=== PATIENT | female | born 1950 | race Caucasian/White ===

== ENCOUNTER 2022-05-31 10:56 | Outpatient (CLI) | payer MEDICARE, SELFPAY ==
--- NOTE | ~2022-05-31 | CT_ITS ---
EXAMINATION: CTA brain carotid DATE: 05/31/2022 11:40 INDICATION: Vertigo. Stroke. TECHNIQUE: Computed tomographic angiography (CTA) of the head was performed without and with 100 mL O mnipaque-350 intravenous contrast. CTA of the neck was performed with intravenous contrast. Automated exposure control and iterative reconstruction technique were employed. The dose-length product was 1 457.96 mGy-cm. Maximum intensity projection and volume rendered 3D-reconstructions were created by leonard frey technologist on a separate workstation. COMPARISON: None. FINDINGS: HEAD CTA: There is no intracranial hemorrhage, acute infarction, or abnormal intracranial mass lesion . There is chronic encephalomalacia involving the right cerebellum and right middle cerebellar pedunc le. The ventricles are normal in size. There are likely changes of right ocular lens replacement surg aysha. There is mild mucosal thickening in the paranasal sinuses. The mastoid air cells are normal. Rig ht vertebral artery is dominant. There is no significant stenosis of basilar artery or the posterior cerebral arteries. The posterior communicating arteries are normal. There is no significant stenosis of the intracranial internal carotid arteries or anterior or middle cerebral arteries. Anterior commu nicating artery is normal. There is no aneurysm. NECK CTA: There is mild mediastinal lymphadenopathy. There is no significant stenosis of the vertebra l arteries. There is plaque in the proximal internal carotid arteries. There is 28% stenosis of the p roximal right internal carotid artery relative to normal distal artery lumen diameter (NASCET criteri a). There is 0% stenosis of the proximal left internal carotid artery relative to normal distal arter y lumen diameter. There is severe cervical spondylosis. IMPRESSION: 1. Chronic encephalomalacia involving the right cerebellum and right middle cerebellar peduncle. 2. No aneurysm or significant intracranial arterial stenosis. 3. 28% stenosis of the proximal right internal carotid artery relative to normal distal artery lumen diameter (NASCET criteria). 4. 0% stenosis of the proximal left internal carotid artery relative to normal distal artery lumen di ameter. 5. Mild mediastinal lymphadenopathy, likely reactive. Reviewed, dictated and finalized at location A. IMPRESSION: 1. Chronic encephalomalacia involving the right cerebellum and right middle cer ebellar peduncle. 2. No aneurysm or significant intracranial arterial stenosis. 3. 28% stenosis of the proximal right internal carotid artery relative to roma l distal artery lumen diameter (NASCET criteria). 4. 0% stenosis of the proximal left internal carotid artery relative to normal distal artery lumen diameter. 5. Mild mediastinal lymphadenopathy, likely reactive.
[2022-05-31 11:31] LABS: Estimated Glomerular Filt Rate > 60
== END 2022-05-31 10:57 | disposition home or self-care (01) ==
PROVIDERS: PCP Family Medicine; Visit Provider Student in an Organized Health Care Education/Training Program
DX: R93.0 Abnormal findings on diagnostic imaging of skull and head, not elsewhere classified (principal); I65.21 Occlusion and stenosis of right carotid artery
CPT/HCPCS: 70496; 70498; Q9967

== ENCOUNTER 2022-06-10 13:14 | Outpatient (CLI) | payer MEDICARE, SELFPAY ==
--- NOTE | 2022-06-10 13:45 | ECHO_ITS ---
Patient Info Name: Aniya Muniz Age: 72 years : 1950 Gender: Female Ht: 63 in Wt: 190 lbs BSA: 1.99 m2 HR: 66 bpm BP: 140 / 82 mmHg Heart Rhythm: Sinus Rhythm Technical Quality: Fair Exam Date: 06/10/2022 1:59 PM Exam Location: [facility] Patient Status: Outpatient Admit Date: 06/10/2022 Staff Ordering Physician: Nelson, Bri Colon DO Safety Investigator: Alee Vivar RDCS Attending Provider: Oneyda Jo MD Referring Physician: Nelson NOGUEIRA; Exam Type: CA echo doppler color flow Study Info Indications R01.1 - Cardiac murmur, unspecified Complete two-dimensional, color flow and Doppler transthoracic echocardiogram is performed. Summary 1. Complete two-dimensional, color flow and Doppler transthoracic echocardiogram is performed. 2. Left ventricular chamber dimension is normal. 3. Left ventricular systolic function is normal, estimated at 60-65%. 4. The left ventricular diastolic function is grade I diastolic dysfunction. 5. E/e' 8 is minimally elevated. 6. The aortic valve is not well visualized. Cannot determine number of aortic valve leaflets. 7. There is severe aortic valve sclerosis. 8. There is moderate aortic valve stenosis with a peak velocity of 243 cm/s, mean gradient of 13 mmHg, and aortic valve area of 1.2 cm2. 9. There is trace aortic valve regurgitation. 10. No pulmonary hypertension, estimated pulmonary arterial systolic pressure is 33 mmHg. Left Ventricle E/e' 8 is minimally elevated. Left ventricular chamber dimension is normal. Left ventricular systolic function is normal, estimated at 60-65%. The left ventricular diastolic function is grade I diastolic dysfunction. Right Ventricle Right ventricular systolic function is normal and with normal TAPSE 1.9 cm. Right ventricular chamber dimension is normal. Left Atria Left atrial chamber dimension is normal. Right Atria Right atrial chamber dimension is normal. Aortic Valve The aortic valve is not well visualized. Cannot determine number of aortic valve leaflets. There is severe aortic valve sclerosis. There is moderate aortic valve stenosis with a peak velocity of 243 cm/s, mean gradient of 13 mmHg, and aortic valve area of 1.2 cm2. There is trace aortic valve regurgitation. Pulmonic Valve There is no pulmonic regurgitation. Mitral Valve There is no mitral valve stenosis. There is no mitral valve regurgitation. Tricuspid Valve There is no tricuspid valve regurgitation. No pulmonary hypertension, estimated pulmonary arterial systolic pressure is 33 mmHg. Pericardium/Pleural There is no pericardial effusion. Inferior Vena Cava Normal inferior vena cava with >50% collapse upon inspiration consistent with normal right atrial pressure, 5 mmHg. Aorta The aortic root size at the sinus of Valsalva is normal. Left Ventricular Outflow Tract Name Value Normal LVOT 2D LVOT Diameter 2.0 cm LVOT Doppler LVOT Peak Gradient 4 mmHg LVOT Mean Gradient 2 mmHg LVOT VTI 20 cm LVOT VTI/AV
== END 2022-06-10 13:15 | disposition home or self-care (01) ==
PROVIDERS: PCP Family Medicine; Visit Provider Student in an Organized Health Care Education/Training Program
DX: R01.1 Cardiac murmur, unspecified (principal); Z86.73 Personal history of transient ischemic attack (TIA), and cerebral infarction without residual deficits
CPT/HCPCS: 93306

== ENCOUNTER 2022-09-16 14:00 | Outpatient (RCR) | payer MEDICARE, SELFPAY ==
--- NOTE | 2022-09-13 14:39 | PTOPEVAL1 ---
Assessment and note entered by Susan Reed DPT Evaluation Information Assessment Status Evaluation Subjective Information Pt reports she was diagnosed with a stroke in November 2021, affected her brainstem. 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 Has a cyst on her wrist that is affecting how she picks something up. Pt reports she is bouncing off doors and schneider . States she is unsteady, multiple falls with most recent being 3 weeks ago. Most unsteadiness is in the shower and does not have grab bars, also feels worse throughout the day as she gets tired. Has noticed her balance and weakness has gradually worsened over the past few months. Was previously using a walker and then cane. Pt is living in her daughter's house but daughter is a travel nurse. States she has neighbors who can check on her occasionally. No stairs in the house except to basement but does not go down there, 3 steps to get in. Cannot alternate feet to descend stairs and reports it is difficult. Pt is driving. Patient goal: improve strength. Reported Pain Level Pain Score 0: Self Report Assessment PT Clinical Summary The patient is presenting to skilled therapy following a stroke in 2021 and difficulty walking/ history of falls. She presents with overall decreased core and lower extremity strength as well as balance impairments that are contributing to her difficulty with ADL's including showering and descending stairs. She will benefit from therapy to address these impairments to decrease fall risk and improve mobility at home . Plan of Care Interventions Manual Therapy,Neuro Re-education,Patient/ Caregiver Education,Therapeutic Activities, Therapeutic Exercise,Self-Care/Home Management PT Services Indicated Yes Treatment Frequency and 2 times a week for 4 weeks Duration These treatments will address the objective and functional deficits as defined above. The patient will be advanced safely and appropriately in order for the patient to progress towards his/her prior level of function. Additional exercises will be introduced and as well as a comprehensive home exercise program upon discharge, if needed, ?to ensure carryover of functional gains achieved in the clinic. This treatment plan has been reviewed and agreement upon by the patient.
--- NOTE | 2022-09-23 11:16 | PTOPDC ---
Assessment and note entered by Melissa Churchill, PT Assessment PT Clinical Summary Pt did not show up for her treatment on 09/23/22. She was called to inquire as to her status. She returned the phone call stating she was changing insurances, a process that she reports will take 4 -6 weeks and thus wants to cease her therapy at this time. She was advised she could return to therapy at any time with a current prescription.
--- NOTE | 2022-09-23 11:34 | PCPTNOTE ---
Patient called & cancelled scheduled remainder of appointments this date due to insurance change.
== END 2022-09-23 12:47 | disposition home or self-care (01) ==
LOC: ANHHIPT 14:00
PROVIDERS: PCP Nurse Practitioner Family; Visit Provider Nurse Practitioner Family
DX: R26.89 Other abnormalities of gait and mobility (principal)
CPT/HCPCS: 97110; 97112; 97162

== ENCOUNTER 2022-12-06 09:55 | Outpatient (CLI) | payer MEDICARE, SELFPAY ==
--- NOTE | 2022-12-06 11:00 | NEURO_ITS ---
Impression: # Complains of numbness of right hand. # Right Carpal Tunnel Syndrome, sensory more than motor. # Normal needle/EMG exam. # Clinical correlation recommended; Higher involvement cannot be ruled out. Nerve Conduction Studies Anti Sensory Summary Table Stim Site NR Peak (ms) P-T Amp (?V) Site1 Site2 Delta-P (ms) Dist (cm) Brant (m/s) Right Median Anti Sensory (2-3nd Digit) Wrist 4.8 19.1 Wrist 2-3nd Digit 4.8 14.0 29 Wrist 6.0 15.1 Wrist 2-3nd Digit 4.8 14.0 29 Right Radial Anti Sensory (Base 1st Digit) Wrist 2.6 10.3 Wrist Base 1st Digit 2.6 0.0 Right Ulnar Anti Sensory (5th Digit) Wrist 2.4 35.8 Wrist 5th Digit 2.4 14.0 58 Motor Summary Table Stim Site NR Onset (ms) O-P Amp (mV) Site1 Site2 Delta-0 (ms) Dist (cm) Brant (m/s) Right Median Motor (Abd Poll Brev) Wrist 3.6 1.0 Elbow Wrist 4.8 28.0 58 Elbow 8.4 1.4 Right Ulnar Motor (Abd Dig Minimi) Wrist 2.6 6.6 A Elbow Wrist 5.0 29.0 58 A Elbow 7.6 5.8 F Wave Studies NR F-Lat (ms) L-R F-Lat (ms) Right Median (Mrkrs) (Abd Poll Brev) 28.30 Right Ulnar (Mrkrs) (Abd Dig Min) 27.50 EMG Side Muscle Nerve Root Ins Act Fibs Amp Dur Recrt Comment Right 1stDorInt Ulnar C8-T1 Nml Nml Nml Nml Nml Right Ext Indicis Radial (Post Int) C7-8 Nml Nml Nml Nml Nml Right Ext Digitorum Radial (Post Int) C7-8 Nml Nml Nml Nml Nml Right BrachioRad Radial C5-6 Nml Nml Nml Nml Nml Right PronatorTeres Median C6-7 Nml Nml Nml Nml Nml Right Abd Poll Brev Median C8-T1 Nml Nml Nml Nml Nml Right ABD Dig Min Ulnar C8-T1 Nml Nml Nml Nml Nml MTDD
== END 2022-12-06 09:56 | disposition home or self-care (01) ==
PROVIDERS: PCP Nurse Practitioner Family; Visit Provider Plastic Surgery
DX: G56.01 Carpal tunnel syndrome, right upper limb (principal)
CPT/HCPCS: 95886; 95909

== ENCOUNTER 2023-02-09 01:10 | Day surgery (SDC) | payer MEDICARE, SELFPAY ==
[2023-01-13 12:58] VITALS: BMI 34.0
--- NOTE | 2023-01-13 13:32 | PC.NURSE ---
Report to the Outpatient Waiting Room, entrance under the green pavilion located off [facility], at time __6:00AM on date __01/26/23 . Planned Procedure Time: __7:30AM . Time changes happen often and if your time is changed the preop area will call you the afternoon before. - You and your visitor will be asked to self-screen and do not enter if you have any COVID symptoms. - A mask is optional within the hospital at this time. Patients may have clear liquids (water, carbonated beverages, clear teas, apple juice) until 3 hours prior to surgery with a maximum of 20 ounces. - No food from midnight until time of surgery Take the following medications with a SIP of water the morning of surgery: __AMLODIPINE, FLONAS NEEDED DO NOT STOP ANY OF YOUR OTHER PRESCRIPTION MEDICATIONS PRIOR TO SURGERY ?EXCEPT THE FOLLOWING Medications to discontinue per physician __HOLD ASPIRIN 3 DAYS PRE-OP PER DR TANG AND HOLD ALL VITAMINS/SUPPLEMENTS 3 DAYS PRE-OP PER ANESTHESIA Date to take last dose____01/22/23 Please no make-up, nail khmer, hairspray, perfume, deodorant, or body powder the day of surgery. No jewelry (including any body piercings) or valuables the day of surgery, leave them at home. Please take a shower or bath the night before, or the morning of, surgery with an antibacterial soap. Wear comfortable, loose fitting clothing. Children are encouraged to wear pajamas. - Jewelry must be removed prior to entering the operating room. Rings and piercings that are not removed may be cut off. - The hospital will not accept responsibility for valuables. - Please leave all valuables, including medications, at home the day of surgery. If you are going home after surgery, a licensed tow car driver must drive you home. - NO public transportation without another adult if you receive anesthesia. - We recommend that an adult stay with you for 24 hours following discharge. - We also recommend that you do not drive, make important decision, drink alcoholic beverages, or take any drugs that were not prescribed by your health care provider for at least 24 hours after your discharge time. Follow any additional instructions given to you from your surgeon. If you or anyone in your household have experienced Covid symptoms in the past week, please notify your surgeon or the nurse liaison at the phone number below for possible testing. Telephone instructions given to _PATIENT & DAUGHTER___and asked if any additional questions and then verbalized understanding. Patient advised to call surgeon office or pre surgery nurse liaison [phone] if any additional questions.
--- NOTE | 2023-01-27 15:11 | PC.NURSE ---
RESCHEDULED- Report to the Outpatient Waiting Room, entrance under the green pavilion located off [facility], at time _6:30AM on date __02/09/23 . Planned Procedure Time: __8:30AM . Time changes happen often and if your time is changed the preop area will call you the afternoon before. - You and your visitor will be asked to self-screen and do not enter if you have any COVID symptoms. - A mask is optional within the hospital at this time. Patients may have clear liquids (water, carbonated beverages, clear teas, apple juice) until 3 hours prior to surgery with a maximum of 20 ounces. - No food from midnight until time of surgery Take the following medications with a SIP of water the morning of surgery: ____AMLODIPINE DO NOT STOP ANY OF YOUR OTHER PRESCRIPTION MEDICATIONS PRIOR TO SURGERY ?EXCEPT THE FOLLOWING Medications to discontinue per physician _HOLD ASPIRIN 3 DAYS PRE-OP PER DR TANG- LAST DOSE- 02/05/23. HOLD ALL VITAMINS/SUPPLEMENTS 3 DAYS PRE-OP PER ANESTHESIA- LAST DOSE 02/05/23___ Please no make-up, nail [place], hairspray, perfume, deodorant, or body powder the day of surgery. No jewelry (including any body piercings) or valuables the day of surgery, leave them at home. Please take a shower or bath the night before, or the morning of, surgery with an antibacterial soap. Wear comfortable, loose fitting clothing. Children are encouraged to wear pajamas. - Jewelry must be removed prior to entering the operating room. Rings and piercings that are not removed may be cut off. - The hospital will not accept responsibility for valuables. - Please leave all valuables, including medications, at home the day of surgery. If you are going home after surgery, a licensed sulky driver must drive you home. - NO public transportation without another adult if you receive anesthesia. - We recommend that an adult stay with you for 24 hours following discharge. - We also recommend that you do not drive, make important decision, drink alcoholic beverages, or take any drugs that were not prescribed by your health care provider for at least 24 hours after your discharge time. Follow any additional instructions given to you from your surgeon. If you or anyone in your household have experienced Covid symptoms in the past week, please notify your surgeon or the nurse liaison at the phone number below for possible testing. Telephone instructions given to _PATIENT and asked if any additional questions and then verbalized understanding. Patient advised to call surgeon office or pre surgery nurse liaison [phone] if any additional questions.
[2023-02-09] VITALS (8 sets, daily range): BP systolic 89–118; BP diastolic 54–65; PULSE 50–64; RESP 14–16; TEMP 36.3; O2SAT 92–97
--- NOTE | 2023-02-09 07:11 | WPDHPUPDATE1 ---
History and Physical Update Update Date/Time: 02/09/23 07:11 History and Physical has been reviewed, including an updated exam of the patient. There are NO changes in the patient's condition. Risks, benefits, and alternatives have been discussed and questions answered. Patient agrees to proceed with procedure.
[2023-02-09] MEDS: LACTATED RINGERS 1,000 ML 30 ML IV CONT ×2 (07:36→09:58)
--- NOTE | 2023-02-09 08:16 | WPDANESEPPF ---
Anes - Initial Pre Proc Eval Procedure: Operation Date: 02/09/23 08:30 Proposed Procedures p Right Open Carpal Tunnel Release, Right Ulnar Neuroplasty at the Elbow - Jose Braga MD Date/Time: 02/09/23 08:16 Surgeon: Jose Braga MD Pre Op Diagnosis: right carpal and cubital tunnel syndrome Patient Data Age: 72 Gender: F Height: 1.6 m Weight: 85.2 kg Last Vital Signs Temp 97.4 F L 02/09/23 07:44 Pulse 64 02/09/23 07:44 Resp 16 02/09/23 07:44 BP 115/65 02/09/23 07:44 Pulse Ox 96 02/09/23 07:44 O2 Del Method Room Air 02/09/23 07:44 Allergies Allergy/AdvReac Type Severity Reaction Status Date / Time butorphanol [From Stadol] Allergy Severe Anaphylactic Verified 02/09/23 07:20 Shock levofloxacin [From Levaquin] Allergy Severe Anaphylactic Verified 02/09/23 07:20 Shock Sulfa (Sulfonamide Allergy Severe Anaphylactic Verified 02/09/23 07:20 Antibiotics) Shock erythromycin base AdvReac YEAST Verified 02/09/23 07:20 INFECTION Home Medications Medication Instructions Recorded Confirmed Type cholecalciferol (vitamin D3) 1,250 1,250 mcg PO WEEKLY 09/30/21 02/09/23 History mcg (50,000 unit) capsule zinc acetate 50 mg (zinc) capsule 50 mg PO DAILY 09/30/21 02/09/23 History (Galzin) ascorbic acid (vitamin C) 1,000 mg 1 g PO DAILY 04/22/22 02/09/23 History capsule estradiol 10 mcg vaginal tablet 10 mcg vaginal 2XW 08/30/22 02/09/23 History (Yuvafem) magnesium oxide 400 mg (241.3 mg 400 mg PO DAILY 08/30/22 02/09/23 History magnesium) tablet (MagOx) atorvastatin 40 mg tablet 40 mg PO DAILY #90 tabs 10/03/22 02/09/23 Rx amlodipine 5 mg tablet 5 mg PO QAM 01/13/23 02/09/23 History aspirin 81 mg tablet,delayed 182 mg PO DAILY 01/13/23 02/09/23 History release calcium carbonate 600 mg-vitamin 1 tablet PO DAILY 01/13/23 02/09/23 History D3 10 mcg (400 unit) tablet (Calcium 600 + D(3)) cyanocobalamin (vitamin B-12) 1,000 mcg PO DAILY 01/13/23 02/09/23 History 1,000 mcg capsule fluorouracil 5 % topical cream 1 applic topical WEEKLY 01/13/23 02/09/23 History fluticasone propionate 50 1 spray intranasal DAILY 01/13/23 02/09/23 History mcg/actuation nasal spray,suspension folic acid 400 mcg tablet 0.4 mg PO DAILY 01/13/23 02/09/23 History potassium gluconate 600 mg (99 mg) 1,000 mg PO DAILY 01/13/23 02/09/23 History tablet loratadine 10 mg capsule 10 mg PO DAILY PRN Sinus Symptoms 01/27/23 02/09/23 History mesalamine 400 mg capsule (with 800 mg PO TID Cramps #540 ea 02/03/23 02/09/23 Rx delayed release tablets inside) Patient hx anesthesia problems: none Family hx anesthesia problems: none Results Review: All pre-operative results and documents have been reviewed as part of the pre-operative evaluation. [facility] Past Medical History Medical History Allergies Arthritis Asthma Cancer of vaginal vault Colitis Gallbladder disorder Uterine cancer Surgical History Surgical History H/O colonoscopy 2017 H/O knee surgery H/O: hysterectomy History of right cataract surgery Family History Family History Mother Heart disease Congestive heart failure Father Melanoma Lung cancer Social History Social History Smoking status: Never smoker Alcohol intake: current Substance use: never Lack of Transportation: No Lack of Food: Never True Current Housing: I Have Housing Concerned About Future Housing: No Difficulty Paying Gas/Electric Bills: No Difficulty Paying for Meds: No Currently Unemployed: No Difficulty w/ Childcare or Family Care: No Living arrangements: with family Additional living arrangements comments: DAUGHTER Occupation/Education: retired Spiritual care concerns: No
[2023-02-09] MEDS: LIDO 1%/EPINEPHRINE 1:100,000 50 ML VIAL INFILTRATE (08:41)
--- NOTE | 2023-02-09 09:49 | W.PM.PROC2 ---
Procedure Note - Detailed Date of Procedure 02/09/23 Pre-op Diagnosis right carpal and cubital tunnel syndrome Post-op Diagnosis Same Procedure Performed RIGHT OPEN CARPAL TUNNEL RELEASE AND RIGHT ULNAR NEUROPLASTY AT THE ELBOW Surgeon Jose Braga MD Nail Technician Juliana ARMAS Description of Procedure The right carpal tunnel and cubital tunnel sites were marked on the patient with her consent in the holding room for she was taken to the operating room she was placed supine on the operating table. She was given IV sedation. The right upper extremity was prepped and draped in the usual fashion. A time-out was held confirmed. Two sites were again marked for the surgical incisions. Each site was infiltrated with 1% lidocaine with epinephrine. Extremity was exsanguinated and the tourniquet inflated to 250 mmHg. The incision was made 1st on the palm this was carried blunt dissection to the palmar aponeurosis. This and the transverse retinaculum were incised with 15 blade. Under 3 point retraction the ligament divided distally and proximally for complete release. There was no unusual anatomy noted. The skin was closed with interrupted 5 0 nylon suture. Attention was turned to the right elbow this was flexed and supported folded towels. The incision was made. Blunt dissection revealed medial epicondyle triceps muscle. The nerve was difficult to locate under the triceps. It appeared that an unusually large branch of the nerve lay over the triceps. The nerve was also surrounded by fat throughout most of its length. It was carefully dissected from under Jean's ligament. There was very little area of compression proximally it appeared. Distally the flexor muscle fascia was incised. Several vascular structures were cauterized. The nerve did not subluxate.. The wound was closed with intradermal 3-0 Monocryl suture. The skin was closed with a running a 3-0 intradermal Monocryl. The tourniquet was released and dressings applied to both sites. The patient was discharged in stable condition. Estimated Blood Loss 5 Tourniquet Time 47 Drains No Packing No Pathology None sent Complications No immediate complications Condition Stable Disposition Same day
[2023-02-09] MEDS: fentaNYL CITRATE INJ (*CRX) 100 MCG/2 ML VIAL 25 MCG IV PUSH ×2 (10:00→10:15)
== END 2023-02-09 11:40 | disposition home or self-care (01) ==
PROVIDERS: PCP Nurse Practitioner Family; Visit Provider Plastic Surgery
PROC: (CPT 64721; principal; 2023-02-09 08:30)
DX: G56.01 Carpal tunnel syndrome, right upper limb (principal); G56.21 Lesion of ulnar nerve, right upper limb; Z79.82 Long term (current) use of aspirin; E66.9 Obesity, unspecified; Z68.33 Body mass index [BMI] 33.0-33.9, adult
CPT/HCPCS: 64721; 64718; A9270; J1100; J2250; J2405; J2704; J3010; J7120

== ENCOUNTER 2023-02-22 06:07 | Day surgery (SDC) | payer MEDICARE, SELFPAY ==
[2023-01-24 15:57] VITALS: BMI 34.0
--- NOTE | 2023-01-31 15:21 | PM.HPGS ---
History of Present Illness History of Present Illness Consent: Risks, benefits, and alternatives have been discussed and questions answered. Patient agrees to proceed with procedure. Chief complaint: gastritis gastroenteritis,colitis Narrative: Aniya Muniz is a 72 year old female who apparently has ulcerative colitis. She states that she gets a colonoscopy every year [facility] Past Medical History Medical History Allergies Arthritis Asthma Cancer of vaginal vault Colitis Gallbladder disorder Uterine cancer Surgical History Surgical History H/O colonoscopy 2017 H/O knee surgery H/O: hysterectomy History of right cataract surgery Family History Family History Mother Heart disease Congestive heart failure Father Melanoma Lung cancer Social History Social History Smoking status: Never smoker Alcohol intake: current Substance use: never Lack of Transportation: No Lack of Food: Never True Current Housing: I Have Housing Concerned About Future Housing: No Difficulty Paying Gas/Electric Bills: No Difficulty Paying for Meds: No Currently Unemployed: No Difficulty w/ Childcare or Family Care: No Living arrangements: with family Additional living arrangements comments: DAUGHTER Occupation/Education: retired Spiritual care concerns: No Agree to blood products: Yes Meds Home Medications and Allergies Home Medications Medication Instructions Recorded Confirmed Type mesalamine 400 mg capsule (with 400 mg PO QID PRN Cramps 09/29/21 01/27/23 History delayed release tablets inside) cholecalciferol (vitamin D3) 1,250 1,250 mcg PO WEEKLY 09/30/21 01/27/23 History mcg (50,000 unit) capsule zinc acetate 50 mg (zinc) capsule 50 mg PO DAILY 09/30/21 01/27/23 History (Galzin) ascorbic acid (vitamin C) 1,000 mg 1 g PO DAILY 04/22/22 01/27/23 History capsule estradiol 10 mcg vaginal tablet 10 mcg vaginal 2XW 08/30/22 01/27/23 History (Yuvafem) magnesium oxide 400 mg (241.3 mg 400 mg PO DAILY 08/30/22 01/27/23 History magnesium) tablet (MagOx) atorvastatin 40 mg tablet 40 mg PO DAILY #90 tabs 10/03/22 01/27/23 Rx amlodipine 5 mg tablet 5 mg PO QAM 01/13/23 01/27/23 History aspirin 81 mg tablet,delayed 182 mg PO DAILY 01/13/23 01/27/23 History release calcium carbonate 600 mg-vitamin 1 tablet PO DAILY 01/13/23 01/27/23 History D3 10 mcg (400 unit) tablet (Calcium 600 + D(3)) cyanocobalamin (vitamin B-12) 1,000 mcg PO DAILY 01/13/23 01/27/23 History 1,000 mcg capsule fluorouracil 5 % topical cream 1 applic topical WEEKLY 01/13/23 01/27/23 History fluticasone propionate 50 1 spray intranasal DAILY 01/13/23 01/27/23 History mcg/actuation nasal spray,suspension folic acid 400 mcg tablet 0.4 mg PO DAILY 01/13/23 01/27/23 History potassium gluconate 600 mg (99 mg) 1,000 mg PO DAILY 01/13/23 01/27/23 History tablet loratadine 10 mg capsule 10 mg PO DAILY PRN Sinus Symptoms 01/27/23 01/27/23 History Allergies Allergy/AdvReac Type Severity Reaction Status Date / Time butorphanol [From Stadol] Allergy Severe Anaphylactic Verified 01/27/23 15:02 Shock levofloxacin [From Levaquin] Allergy Severe Anaphylactic Verified 01/27/23 15:02 Shock Sulfa (Sulfonamide Allergy Severe Anaphylactic Verified 01/27/23 15:02 Antibiotics) Shock erythromycin base AdvReac YEAST Verified 01/27/23 15:02 INFECTION Assessment and Plan Assessment and plan (1) Colitis: Code(s): K52.9 - Noninfective gastroenteritis and colitis, unspecified Status: Acute Assessment and Plan: Colonoscopy with possible biopsy or polypectomy or cautery or injection of substances.
--- NOTE | 2023-02-20 15:02 | PM.HPGS ---
History of Present Illness History of Present Illness Consent: Risks, benefits, and alternatives have been discussed and questions answered. Patient agrees to proceed with procedure. Chief complaint: gastritis gastroenteritis,colitis Narrative: Aniya Muniz is a 73 year old female Referred for colon cancer screening. She has history of Collagenous colitis for which she takes mesalamine. She is new to the area. she has had no problems with her bowels lately. Review of Systems Review of Systems: All systems reviewed & are unremarkable except as noted in HPI and below PMFSH Past Medical History Medical History Allergies Arthritis Asthma Cancer of vaginal vault Colitis Gallbladder disorder Uterine cancer Surgical History Surgical History H/O colonoscopy 2018 H/O knee surgery H/O: hysterectomy History of right cataract surgery Family History Family History Mother Heart disease Congestive heart failure Father Melanoma Lung cancer Social History Social History Smoking status: Never smoker Alcohol intake: current Substance use: never Lack of Transportation: No Lack of Food: Never True Current Housing: I Have Housing Concerned About Future Housing: No Difficulty Paying Gas/Electric Bills: No Difficulty Paying for Meds: No Currently Unemployed: No Difficulty w/ Childcare or Family Care: No Living arrangements: with family Additional living arrangements comments: DAUGHTER Occupation/Education: retired Spiritual care concerns: No Agree to blood products: Yes Meds Home Medications and Allergies Home Medications Medication Instructions Recorded Confirmed Type cholecalciferol (vitamin D3) 1,250 1,250 mcg PO WEEKLY 09/30/21 02/13/23 History mcg (50,000 unit) capsule zinc acetate 50 mg (zinc) capsule 50 mg PO DAILY 09/30/21 02/13/23 History (Galzin) ascorbic acid (vitamin C) 1,000 mg 1 g PO DAILY 04/22/22 02/13/23 History capsule estradiol 10 mcg vaginal tablet 10 mcg vaginal 2XW 08/30/22 02/13/23 History (Yuvafem) magnesium oxide 400 mg (241.3 mg 400 mg PO DAILY 08/30/22 02/13/23 History magnesium) tablet (MagOx) atorvastatin 40 mg tablet 40 mg PO DAILY #90 tabs 10/03/22 02/13/23 Rx amlodipine 5 mg tablet 5 mg PO QAM 01/13/23 02/13/23 History aspirin 81 mg tablet,delayed 182 mg PO DAILY 01/13/23 02/13/23 History release calcium carbonate 600 mg-vitamin 1 tablet PO DAILY 01/13/23 02/13/23 History D3 10 mcg (400 unit) tablet (Calcium 600 + D(3)) cyanocobalamin (vitamin B-12) 1,000 mcg PO DAILY 01/13/23 02/13/23 History 1,000 mcg capsule fluorouracil 5 % topical cream 1 applic topical WEEKLY 01/13/23 02/13/23 History fluticasone propionate 50 1 spray intranasal DAILY 01/13/23 02/13/23 History mcg/actuation nasal spray,suspension folic acid 400 mcg tablet 0.4 mg PO DAILY 01/13/23 02/13/23 History potassium gluconate 600 mg (99 mg) 1,000 mg PO DAILY 01/13/23 02/13/23 History tablet loratadine 10 mg capsule 10 mg PO DAILY PRN Sinus Symptoms 01/27/23 02/13/23 History mesalamine 400 mg capsule (with 800 mg PO TID Cramps #540 ea 02/03/23 02/13/23 Rx delayed release tablets inside) Allergies Allergy/AdvReac Type Severity Reaction Status Date / Time butorphanol [From Stadol] Allergy Severe Anaphylactic Verified 02/22/23 08:16 Shock levofloxacin [From Levaquin] Allergy Severe Anaphylactic Verified 02/22/23 08:16 Shock Sulfa (Sulfonamide Allergy Severe Anaphylactic Verified 02/22/23 08:16 Antibiotics) Shock erythromycin base AdvReac YEAST Verified 02/22/23 08:16 INFECTION Exam Const: General: alert Orientation/consciousness: patient oriented x3 Resp: Auscultation: clear to
[2023-02-22 08:17] VITALS: BP 138/65; PULSE 63; RESP 18; TEMP 36.1; O2SAT 98
[2023-02-22] MEDS: LACTATED RINGERS 1,000 ML 150 ML IV CONT (08:31)
--- NOTE | 2023-02-22 08:53 | WPDANESEPPF ---
Anes - Initial Pre Proc Eval Procedure: Operation Date: 02/22/23 09:30 Proposed Procedures p Colonoscopy - Isaias Mcdonnell MD Date/Time: 02/22/23 08:53 Surgeon: Isaias Mcdonnell MD Pre Op Diagnosis: gastritis gastroenteritis,colitis Patient Data Age: 73 Gender: F Height: 1.6 m Weight: 85 kg Last Vital Signs Temp 97 F L 02/22/23 08:17 Pulse 63 02/22/23 08:17 Resp 18 02/22/23 08:17 BP 138/65 02/22/23 08:17 Pulse Ox 98 02/22/23 08:17 O2 Del Method Room Air 02/22/23 08:17 Allergies Allergy/AdvReac Type Severity Reaction Status Date / Time butorphanol [From Stadol] Allergy Severe Anaphylactic Verified 02/22/23 08:16 Shock levofloxacin [From Levaquin] Allergy Severe Anaphylactic Verified 02/22/23 08:16 Shock Sulfa (Sulfonamide Allergy Severe Anaphylactic Verified 02/22/23 08:16 Antibiotics) Shock erythromycin base AdvReac YEAST Verified 02/22/23 08:16 INFECTION Home Medications Medication Instructions Recorded Confirmed Type cholecalciferol (vitamin D3) 1,250 1,250 mcg PO WEEKLY 09/30/21 02/13/23 History mcg (50,000 unit) capsule zinc acetate 50 mg (zinc) capsule 50 mg PO DAILY 09/30/21 02/13/23 History (Galzin) ascorbic acid (vitamin C) 1,000 mg 1 g PO DAILY 04/22/22 02/13/23 History capsule estradiol 10 mcg vaginal tablet 10 mcg vaginal 2XW 08/30/22 02/13/23 History (Yuvafem) magnesium oxide 400 mg (241.3 mg 400 mg PO DAILY 08/30/22 02/13/23 History magnesium) tablet (MagOx) atorvastatin 40 mg tablet 40 mg PO DAILY #90 tabs 10/03/22 02/13/23 Rx amlodipine 5 mg tablet 5 mg PO QAM 01/13/23 02/13/23 History aspirin 81 mg tablet,delayed 182 mg PO DAILY 01/13/23 02/13/23 History release calcium carbonate 600 mg-vitamin 1 tablet PO DAILY 01/13/23 02/13/23 History D3 10 mcg (400 unit) tablet (Calcium 600 + D(3)) cyanocobalamin (vitamin B-12) 1,000 mcg PO DAILY 01/13/23 02/13/23 History 1,000 mcg capsule fluorouracil 5 % topical cream 1 applic topical WEEKLY 01/13/23 02/13/23 History fluticasone propionate 50 1 spray intranasal DAILY 01/13/23 02/13/23 History mcg/actuation nasal spray,suspension folic acid 400 mcg tablet 0.4 mg PO DAILY 01/13/23 02/13/23 History potassium gluconate 600 mg (99 mg) 1,000 mg PO DAILY 01/13/23 02/13/23 History tablet loratadine 10 mg capsule 10 mg PO DAILY PRN Sinus Symptoms 01/27/23 02/13/23 History mesalamine 400 mg capsule (with 800 mg PO TID Cramps #540 ea 02/03/23 02/13/23 Rx delayed release tablets inside) Patient hx anesthesia problems: none Family hx anesthesia problems: none Results Review: All pre-operative results and documents have been reviewed as part of the pre-operative evaluation. [facility] Past Medical History Medical History Allergies Arthritis Asthma Cancer of vaginal vault Colitis Gallbladder disorder Uterine cancer Surgical History Surgical History H/O colonoscopy 2018 H/O knee surgery H/O: hysterectomy History of right cataract surgery Family History Family History Mother Heart disease Congestive heart failure Father Melanoma Lung cancer Social History Social History Smoking status: Never smoker Alcohol intake: current Substance use: never Lack of Transportation: No Lack of Food: Never True Current Housing: I Have Housing Concerned About Future Housing: No Difficulty Paying Gas/Electric Bills: No Difficulty Paying for Meds: No Currently Unemployed: No Difficulty w/ Childcare or Family Care: No Living arrangements: with family Additional living arrangements comments: DAUGHTER Occupation/Education: retired Spiritual care concerns: No Agree to blood products: Yes Anes - Eval Final PreProcedure
[2023-02-22 09:03] VITALS: BP 100/64; PULSE 60; RESP 17; O2SAT 97
[2023-02-22 09:13] VITALS: BP 118/73; PULSE 58; RESP 18; O2SAT 99
[2023-02-22 09:23] VITALS: BP 128/72; PULSE 64; RESP 16; O2SAT 99
== END 2023-02-22 09:45 | disposition home or self-care (01) ==
PROVIDERS: PCP Nurse Practitioner Family; Visit Provider Internal Medicine Gastroenterology
PROC: 0DJD8ZZ Inspection of Lower Intestinal Tract, Via Natural or Artificial Opening Endoscopic (ICD-10-PCS; CPT 45378; principal; 2023-02-22 09:30)
DX: Z09 Encounter for follow-up examination after completed treatment for conditions other than malignant neoplasm (principal); Z87.19 Personal history of other diseases of the digestive system; Z86.010 Personal history of colon polyps; Z79.82 Long term (current) use of aspirin
CPT/HCPCS: 45378; 88305; J2704; J7120

== ENCOUNTER 2023-05-10 12:25 | Outpatient (CLI) | payer MEDICARE, SELFPAY ==
--- NOTE | 2023-05-10 | ECHO_ITS ---
Patient Info Name: Aniya Muniz Age: 73 years : 1950 Gender: Female Ht: 63 in Wt: 185 lbs BSA: 1.96 m2 HR: 63 bpm BP: 147 / 82 mmHg Technical Quality: Fair Exam Date: 05/10/2023 1:22 PM Exam Location: [facility] Patient Status: Outpatient Admit Date: 05/10/2023 Staff Ordering Physician: Mathew James DO Batch Mixer: Shahida Hernandez RDCS Attending Provider: Mathew James DO Referring Physician: Jacob FRYE; Exam Type: CA echo doppler color flow Study Info Indications I35.0 - Nonrheumatic aortic (valve) stenosis Complete two-dimensional, color flow and Doppler transthoracic echocardiogram is performed. Summary 1. Complete two-dimensional, color flow and Doppler transthoracic echocardiogram is performed. 2. Left ventricular chamber dimension is normal. 3. Left ventricular systolic function is normal, estimated at 65-70%. 4. The left ventricular diastolic function is grade I diastolic dysfunction. 5. E/e' 7 is not elevated. 6. Left atrial chamber dimension is mildly enlarged. 7. There is moderate aortic valve sclerosis. 8. There is moderate aortic valve stenosis with a peak velocity of 271 cm/s, mean gradient of 14 mmHg, and aortic valve area of 1.5 cm2. 9. No pulmonary hypertension, estimated pulmonary arterial systolic pressure is 30 mmHg. Left Ventricle E/e' 7 is not elevated. Left ventricular chamber dimension is normal. Left ventricular systolic function is normal, estimated at 65-70%. The left ventricular diastolic function is grade I diastolic dysfunction. Right Ventricle Right ventricular systolic function is normal and with normal TAPSE 2.3 cm. Right ventricular chamber dimension is normal. Left Atria Left atrial chamber dimension is mildly enlarged. Right Atria Right atrial chamber dimension is normal. Aortic Valve The aortic valve is trileaflet. There is moderate aortic valve sclerosis. There is moderate aortic valve stenosis with a peak velocity of 271 cm/s, mean gradient of 14 mmHg, and aortic valve area of 1.5 cm2. There is no aortic valve regurgitation. Pulmonic Valve There is no pulmonic regurgitation. Mitral Valve There is no mitral valve stenosis. There is no mitral valve regurgitation. Tricuspid Valve There is no tricuspid valve regurgitation. No pulmonary hypertension, estimated pulmonary arterial systolic pressure is 30 mmHg. Pericardium/Pleural There is no pericardial effusion. Inferior Vena Cava Normal inferior vena cava with >50% collapse upon inspiration consistent with normal right atrial pressure, 5 mmHg. Aorta The aortic root size at the sinus of Valsalva is normal. Left Ventricular Outflow Tract Name Value Normal LVOT 2D LVOT Diameter 2.0 cm LVOT Doppler LVOT Peak Gradient 5 mmHg LVOT Mean Gradient 2 mmHg LVOT VTI 23 cm LVOT VTI/AV VTI Ratio 0.5 LVOT Stroke Volume 70 ml LVOT CO 13.1 l/min LVOT CI 6.6 l/min/m2 Pulmonic Valve Name
== END 2023-05-10 12:26 | disposition home or self-care (01) ==
PROVIDERS: PCP Nurse Practitioner Family; Visit Provider Internal Medicine Cardiovascular Disease
DX: I35.0 Nonrheumatic aortic (valve) stenosis (principal)
CPT/HCPCS: 93306